=== PATIENT | male | born 1950 | race Two or more races ===

== ENCOUNTER 2020-12-16 10:45 | Inpatient (IN) | payer OTHER ==
[~2020-12-16] VITALS: Ht 172.7 cm; Wt 78.0 kg
[2020-12-16] MEDS ORDERED: KAPSPARGO SPRIN50 MG PO (12:40)
[2020-12-16] MEDS ORDERED: VASOTEC20 M1 PO (12:40)
[2020-12-16] MEDS ORDERED: METFORMIN HCL1000 M2 PO (12:40)
[2020-12-16] MEDS ORDERED: SINGULAIR10 MG PO (12:41)
[2020-12-16] MEDS ORDERED: ADULT LOW DOSE81 M1 PO (12:41)
[2020-12-16] MEDS ORDERED: DOXAZOSIN MESYLA2 MG PO (12:41)
[2020-12-16] MEDS ORDERED: PLAVIX75 MG PO (12:41)
[2020-12-16] MEDS ORDERED: CRESTOR5 MG PO (12:44)
[2020-12-25] MEDS ORDERED: HYOSCYAMINE0.125 M1 SL (13:25)
[2020-12-25] MEDS ORDERED: PROTONIX40 MG PO (13:26)
[2020-12-25] MEDS ORDERED: ULTRACET PO (13:26)
== END 2020-12-25 14:35 | disposition home or self-care (01) | DRG 330 ==
LOC: SURH 12-22 06:24 → O/R 12-22 06:24 → SURH 12-22 10:45
PROVIDERS: ADMIT Surgery; ATTEND Surgery
PROC: 0DTP0ZZ Resection of Rectum, Open Approach (ICD-10-PCS; 2020-12-22)
PROC: 07BD0ZX Excision of Aortic Lymphatic, Open Approach, Diagnostic (ICD-10-PCS; 2020-12-22)
PROC: 0DTN0ZZ Resection of Sigmoid Colon, Open Approach (ICD-10-PCS; principal; 2020-12-22 17:00)
DX: C18.7 Malignant neoplasm of sigmoid colon (principal); K92.1 Melena; K64.2 Third degree hemorrhoids; Z20.822 Contact with and (suspected) exposure to COVID-19; I10 Essential (primary) hypertension; E11.9 Type 2 diabetes mellitus without complications

== ENCOUNTER 2020-12-28 21:58 | Inpatient (IN) | payer OTHER ==
[~2020-12-28] VITALS: Ht 172.7 cm; Wt 78.0 kg
[~2020-12-28 21:58] MED LIST: ADULT LOW DOSE81 M1 PO; CRESTOR5 MG PO; DOXAZOSIN MESYLA2 MG PO; HYOSCYAMINE0.125 M1 SL; KAPSPARGO SPRIN50 MG PO; METFORMIN HCL1000 M2 PO; PLAVIX75 MG PO; PROTONIX40 MG PO; SINGULAIR10 MG PO; ULTRACET PO; VASOTEC20 M1 PO
[2021-01-02] MEDS ORDERED: PROTONIX40 MG PO (10:29)
[2021-01-02] MEDS ORDERED: ULTRACET PO (10:29)
[2021-01-02] MEDS ORDERED: DICY20TA PO (10:30)
[2021-01-02] MEDS ORDERED: INTESTINEX680 M1 PO (10:30)
== END 2021-01-02 12:01 | disposition home or self-care (01) | DRG 389 ==
LOC: ER 21:58 → SEC-K 12-29 07:52 → SURH 12-29 07:52 → O/R 12-29 14:43 → SEC-K 12-29 14:49 → SURH 12-29 17:34 → SEC-K 12-29 20:00 → SURH 12-29 20:01
PROVIDERS: ADMIT Surgery; ATTEND Surgery
PROC: 02HV33Z Insertion of Infusion Device into Superior Vena Cava, Percutaneous Approach (ICD-10-PCS; principal; 2020-12-30)
PROC: 3E0F7SF Introduction of Other Gas into Respiratory Tract, Via Natural or Artificial Opening (ICD-10-PCS; 2020-12-30)
DX: K91.30 Postprocedural intestinal obstruction, unspecified as to partial versus complete (principal); K94.19 Other complications of enterostomy; J98.11 Atelectasis; I10 Essential (primary) hypertension; E11.9 Type 2 diabetes mellitus without complications; E80.4 Gilbert syndrome; D50.0 Iron deficiency anemia secondary to blood loss (chronic); Y83.8 Other surgical procedures as the cause of abnormal reaction of the patient, or of later complication, without mention of misadventure at the time of the procedure; Z20.822 Contact with and (suspected) exposure to COVID-19

== ENCOUNTER 2021-03-17 08:34 | Outpatient (CLI) | payer OTHER ==
[~2021-03-17 08:34] MED LIST changes: +DICY20TA PO; +INTESTINEX680 M1 PO
== END 2021-03-17 08:43 | disposition home or self-care (01) ==
LOC: RX STUDY 08:34
PROVIDERS: ATTEND Surgery
DX: R19.5 Other fecal abnormalities (principal); K64.2 Third degree hemorrhoids; R19.4 Change in bowel habit; C19 Malignant neoplasm of rectosigmoid junction

== ENCOUNTER 2021-04-20 10:30 | Inpatient (IN) | payer OTHER ==
[~2021-04-20] VITALS: Ht 172.7 cm; Wt 77.1 kg
[2021-04-20] MEDS ORDERED: MONTELUKAST SODI4 M1 (13:10)
[2021-04-20] MEDS ORDERED: PEPCID AC20 MG PO (13:10)
[2021-04-20] MEDS ORDERED: METOPROLOL SUCC50 MG PO (13:11)
[2021-04-20] MEDS ORDERED: ALLER-EASE180 MG PO (13:12)
[2021-04-20] MEDS ORDERED: VASOTEC20 MG PO (13:12)
[2021-04-20] MEDS ORDERED: CLOPIDROGEL PO (13:12)
[2021-04-20] MEDS ORDERED: ASA PO (13:13)
[2021-04-20] MEDS ORDERED: JARDIANCE10 MG PO (13:13)
[2021-04-20] MEDS ORDERED: PROTONIX40 M1 PO (13:13)
[2021-04-20] MEDS ORDERED: EZALLOR SPRINKL40 MG PO (13:13)
[2021-04-20] MEDS ORDERED: ZETIA10 MG PO (13:14)
[2021-04-20] MEDS ORDERED: SPIRIVA PO (13:14)
[2021-04-20] MEDS ORDERED: ALLERGY RELIE15.8 ML (13:15)
[2021-04-20] MEDS ORDERED: BREO ELLIPTA 21 EACH IH (13:15)
[2021-04-25] MEDS ORDERED: SPIRIVA RESPIMAT4 G1 (08:46)
[2021-04-25] MEDS ORDERED: METOPROLOL TART50 MG (08:46)
[2021-04-25] MEDS ORDERED: CLOPIDOGREL BIS75 MG (08:46)
[2021-04-25] MEDS ORDERED: FLONASE16 GM (08:46)
[2021-04-25] MEDS ORDERED: MONTELUKAST SOD10 MG (08:46)
[2021-04-25] MEDS ORDERED: LEVALBUTEROL TA15 GM (08:47)
[2021-04-25] MEDS ORDERED: DOCUSATE SODIU100 MG (08:47)
[2021-04-25] MEDS ORDERED: ABATINEX680 MG (08:47)
[2021-04-25] MEDS ORDERED: BACLOFEN20 MG (08:48)
[2021-04-25] MEDS ORDERED: VITAMIN D325 MCG (08:48)
[2021-04-25] MEDS ORDERED: DOXAZOSIN MESYLA2 MG (08:48)
[2021-04-25] MEDS ORDERED: METFORMIN HCL1000 M3 (08:48)
[2021-04-25] MEDS ORDERED: ADULT LOW DOSE81 M1 (08:50)
[2021-04-27] MEDS ORDERED: DICLOFENAC SODI75 MG PO (10:03)
[2021-04-27] MEDS ORDERED: INTESTINEX680 M1 PO (10:04)
== END 2021-04-27 13:50 | disposition home or self-care (01) | DRG 330 ==
LOC: O/R 04-24 05:44 → SURH 04-24 10:30
PROVIDERS: ADMIT Surgery; ATTEND Surgery
PROC: 3E0F7SF Introduction of Other Gas into Respiratory Tract, Via Natural or Artificial Opening (ICD-10-PCS; 2021-04-24)
PROC: 0DSB4ZZ Reposition Ileum, Percutaneous Endoscopic Approach (ICD-10-PCS; principal; 2021-04-24 11:15)
DX: C19 Malignant neoplasm of rectosigmoid junction (principal); K92.1 Melena; K62.4 Stenosis of anus and rectum; K64.2 Third degree hemorrhoids

== ENCOUNTER 2021-05-06 11:52 | Inpatient (IN) | payer OTHER ==
[~2021-05-06] VITALS: Ht 172.7 cm; Wt 68.0 kg
[~2021-05-06 11:52] MED LIST changes: +ABATINEX680 MG; +ADULT LOW DOSE81 M1; +ALLER-EASE180 MG PO; +ALLERGY RELIE15.8 ML; +ASA PO; +BACLOFEN20 MG; +BREO ELLIPTA 21 EACH IH; +CLOPIDOGREL BIS75 MG; +CLOPIDROGEL PO; +DICLOFENAC SODI75 MG PO; +DOCUSATE SODIU100 MG; +DOXAZOSIN MESYLA2 MG; +EZALLOR SPRINKL40 MG PO; +FLONASE16 GM; +JARDIANCE10 MG PO; +LEVALBUTEROL TA15 GM; +METFORMIN HCL1000 M3; +METOPROLOL SUCC50 MG PO; +METOPROLOL TART50 MG; +MONTELUKAST SOD10 MG; +MONTELUKAST SODI4 M1; +PEPCID AC20 MG PO; +PROTONIX40 M1 PO; +SPIRIVA PO; +SPIRIVA RESPIMAT4 G1; +VASOTEC20 MG PO; +VITAMIN D325 MCG; +ZETIA10 MG PO
[2021-05-22] MEDS ORDERED: CHOLESTYRAMINE P4 GM PO (08:17)
[2021-05-22] MEDS ORDERED: HYOSCYAMINE0.125 M1 SL (08:17)
[2021-05-22] MEDS ORDERED: INTESTINEX680 M1 PO (08:18)
[2021-05-22] MEDS ORDERED: PROTONIX40 MG PO (08:19)
== END 2021-05-22 12:24 | disposition home or self-care (01) | DRG 394 ==
LOC: ER 11:52 → SURG 18:41 → SURH 05-10 14:21
PROVIDERS: ADMIT Surgery; ATTEND Surgery
PROC: BW2110Z Computerized Tomography (CT Scan) of Abdomen and Pelvis using Low Osmolar Contrast, Unenhanced and Enhanced (ICD-10-PCS; 2021-05-07)
PROC: 3E0F7SF Introduction of Other Gas into Respiratory Tract, Via Natural or Artificial Opening (ICD-10-PCS; 2021-05-07)
PROC: 4A033R1 Measurement of Arterial Saturation, Peripheral, Percutaneous Approach (ICD-10-PCS; 2021-05-07)
PROC: 3E0F7GC Introduction of Other Therapeutic Substance into Respiratory Tract, Via Natural or Artificial Opening (ICD-10-PCS; 2021-05-10)
PROC: BW2110Z Computerized Tomography (CT Scan) of Abdomen and Pelvis using Low Osmolar Contrast, Unenhanced and Enhanced (ICD-10-PCS; 2021-05-16)
PROC: 0D7N8ZZ Dilation of Sigmoid Colon, Via Natural or Artificial Opening Endoscopic (ICD-10-PCS; principal; 2021-05-18)
DX: K91.89 Other postprocedural complications and disorders of digestive system (principal); K91.30 Postprocedural intestinal obstruction, unspecified as to partial versus complete; T81.41XA Infection following a procedure, superficial incisional surgical site, initial encounter; J98.11 Atelectasis; C20 Malignant neoplasm of rectum; K91.858 Other complications of intestinal pouch; K62.4 Stenosis of anus and rectum; Y83.8 Other surgical procedures as the cause of abnormal reaction of the patient, or of later complication, without mention of misadventure at the time of the procedure; Y81.8 Miscellaneous general- and plastic-surgery devices associated with adverse incidents, not elsewhere classified; Y92.018 Other place in single-family (private) house as the place of occurrence of the external cause; B95.61 Methicillin susceptible Staphylococcus aureus infection as the cause of diseases classified elsewhere; L08.9 Local infection of the skin and subcutaneous tissue, unspecified; D72.828 Other elevated white blood cell count; G89.18 Other acute postprocedural pain; I11.9 Hypertensive heart disease without heart failure; E11.9 Type 2 diabetes mellitus without complications; Z79.4 Long term (current) use of insulin; E80.4 Gilbert syndrome; E87.6 Hypokalemia; Z93.2 Ileostomy status; E78.00 Pure hypercholesterolemia, unspecified; Z20.822 Contact with and (suspected) exposure to COVID-19

== ENCOUNTER 2022-02-15 06:25 | Day surgery (SDC) | payer OTHER ==
[~2022-02-15 06:25] MED LIST changes: +CHOLESTYRAMINE P4 GM PO
== END 2022-02-15 12:25 | disposition home or self-care (01) ==
LOC: AMB-ENDOS 06:25
PROVIDERS: ATTEND Surgery
DX: R19.5 Other fecal abnormalities (principal); K62.4 Stenosis of anus and rectum; Z88.0 Allergy status to penicillin; Z88.8 Allergy status to other drugs, medicaments and biological substances; I10 Essential (primary) hypertension; Z85.048 Personal history of other malignant neoplasm of rectum, rectosigmoid junction, and anus